=== PATIENT | female | born 1995 | race African-American/Black ===

== ENCOUNTER 2017-05-14 20:42 | Emergency (ER) | payer MEDICAID ==
[~2017-05-14] VITALS: Ht 152.4 cm; Wt 107.0 kg
[2017-05-14 22:19] VITALS: BP 105/69
== END 2017-05-15 01:00 | disposition left against medical advice (07) ==
LOC: ER 20:42
DX: Z53.21 Procedure and treatment not carried out due to patient leaving prior to being seen by health care provider (principal)
CPT/HCPCS: 81025

== ENCOUNTER 2018-12-01 00:02 | Observation (INO) | payer BC, MEDICAID ==
[~2018-12-01] VITALS: Ht 152.4 cm; Wt 81.6 kg
[2018-12-01] MEDS ORDERED: MVI, ADULT NO.1 10 ML in SODIUM CHLORIDE 0.9% 1,000 ML IV SCH ×2 (02:00)
== END 2018-12-01 03:14 | disposition home or self-care (01) ==
LOC: 8 EST LDRP 00:02
PROVIDERS: ADMIT Specialist; ATTEND Specialist
DX: O26.892 Other specified pregnancy related conditions, second trimester (principal); R10.13 Epigastric pain; Z3A.27 27 weeks gestation of pregnancy
CPT/HCPCS: 76815; 76818; 96365; 99281; G0378; 96360; 96361; J3490; J7030